=== PATIENT | female | born 1935 | race Caucasian/White ===

== ENCOUNTER 2021-12-31 20:22 | Inpatient (IN) | payer MEDICARE ==
[2021-12-31] MEDS ORDERED: Enoxaparin Sodium 40 MG/0.4 ML SYRINGE SC SCH (22:30)
[2021-12-31] MEDS ORDERED: hydrALAZINE 20 MG/ML VIAL SLOW IVP PRN (23:29)
[2021-12-31] MEDS ORDERED: Ascorbic Acid 500 mg Chewable Tablet PO SCH (23:30)
[2021-12-31] MEDS ORDERED: Zinc Sulfate 220 MG CAP PO SCH (23:30)
[2021-12-31] MEDS ORDERED: Cholecalciferol (Vitamin D3) 400 UNITS TAB PO SCH (23:30)
[2021-12-31 23:34] LABS: Troponin I 0.034 ng/mL (< 0.028)
[2021-12-31] MEDS ORDERED: Pantoprazole 40 MG VIAL IVP SCH (23:45)
[2021-12-31] MEDS ORDERED: Albuterol 200 PUFF (6.7GM INHALER) INH PRN (23:49)
[2022-01-01] MEDS: Acetaminophen 325 MG TAB PO PRN ×2 (00:22→22:22)
[2022-01-01] MEDS: Melatonin 3 MG TAB PO PRN ×2 (00:22→22:22)
[2022-01-01] MEDS: Sodium Chloride 0.9% 1,000 ML IV SCH ×2 (00:22→22:22)
[2022-01-01 01:15] LABS: Bacteria/HPF None Seen HPF (None Seen); Bilirubin Negative (Negative); Blood, Urine Trace (Negative); Clarity Clear (Clear); Glucose, Urine (Dipstick) Normal (Negative); Ketone, Urine Trace mg/dL (Negative); Leukocyte Negative Leu/uL (Negative); Nitrite Negative (Negative); Protein, Urine (Dipstick) 30 mg/dL (Neg-Trace); RBC/HPF 0-3 HPF (0-3); Specific Gravity, Urine 1.008 (1.002-1.036); Squamous Epithelial None Seen HPF (0-3); Urobilinogen Normal mg/dL (Less than 2); WBC/HPF 0-3 HPF (0-3); pH, Urine 5.5 (5.0-9.0)
[2022-01-01 01:46] LABS: Urine Culture Reflex No No
[2022-01-01 02:58] LABS: Troponin I 0.029 ng/mL (< 0.028)
[2022-01-01 04:58] LABS: #Monocytes 0.5 thou/uL (0.11-0.59); #Neutrophils 1.6 thou/uL (1.40-6.50); %Basophils 0.8 % (0.0-1.0); %Eosinophils 0.6 % (0.0-10.0); %Lymphocytes 31.8 % (21.0-51.0); %Monocytes 14.7 % (0.0-10.0); Hemoglobin 12.6 g/dL (12.0-16.0); Mean Corpuscular HGB CONC 32.7 g/dL (32.0-36.0); Mean Corpuscular Hemoglobin 34.6 pg (27.0-31.0); Mean Platelet Volume 7.5 fL (7.4-10.4); Platelet Count 220 thou/uL (130-400); Platelet Morphology Comment Appears Adequate; Red Blood Cell (RBC) Count 3.65 mill/uL (4.20-5.40); White Blood Cell (WBC) Count 3.1 thou/uL (4.8-10.8)
[2022-01-01 05:19] LABS: ALT (SGPT) 20 U/L (8-55); AST (SGOT) 42 U/L (5-34); Albumin 3.6 g/dL (3.4-4.8); Alkaline Phosphatase 90 U/L (40-110); Anion Gap 15 mmol/L (10-20); BUN (Urea Nitrogen) 19 mg/dL (9.8-20.1); Bilirubin, Total 0.3 mg/dL (0.2-1.2); Calc. Creatinine Clearance 31 mL/min (70-130); Calcium 8.6 mg/dL (7.8-10.44); Carbon Dioxide 21 mmol/L (23-31); Chloride 101 mmol/L (98-107); Globulin 2.5 g/dL (2.4-3.5); Glucose 106 mg/dL (83-110); Potassium 3.3 mmol/L (3.5-5.1); Protein, Total 6.1 g/dL (5.8-8.1); Sodium 134 mmol/L (136-145)
[2022-01-01] MEDS: Cholecalciferol (Vitamin D3) 400 UNITS TAB PO SCH (08:58)
[2022-01-01] MEDS: Aspirin Chewable 81 MG TAB PO SCH (08:58)
[2022-01-01] MEDS: Amlodipine 5 MG TAB PO SCH (08:58)
[2022-01-01] MEDS: Zinc Sulfate 220 MG CAP PO SCH (08:58)
[2022-01-01] MEDS: Ascorbic Acid 500 mg Chewable Tablet PO SCH (08:58)
[2022-01-01] MEDS ORDERED: Enoxaparin Sodium 40 MG/0.4 ML SYRINGE SC SCH (09:00)
[2022-01-01] MEDS ORDERED: Potassium Chloride 20 MEQ TAB PO SCH (09:00)
[2022-01-01] MEDS ORDERED: Pantoprazole 40 MG VIAL IVP SCH (09:00)
[2022-01-01] MEDS: Famotidine 20 MG TAB PO SCH (22:22)
[2022-01-01] MEDS ORDERED: PAXLOVID PO SCH (23:59)
[2022-01-02 04:34] LABS: Hemoglobin 12.9 g/dL (12.0-16.0); Mean Corpuscular HGB CONC 32.4 g/dL (32.0-36.0); Mean Corpuscular Hemoglobin 34.1 pg (27.0-31.0); Platelet Count 233 thou/uL (130-400); Red Blood Cell (RBC) Count 3.77 mill/uL (4.20-5.40); White Blood Cell (WBC) Count 3.2 thou/uL (4.8-10.8)
[2022-01-02 04:54] LABS: Anion Gap 17 mmol/L (10-20); BUN (Urea Nitrogen) 15 mg/dL (9.8-20.1); Calc. Creatinine Clearance 40 mL/min (70-130); Calcium 8.8 mg/dL (7.8-10.44); Carbon Dioxide 18 mmol/L (23-31); Chloride 106 mmol/L (98-107); Glucose 75 mg/dL (83-110); Potassium 4.1 mmol/L (3.5-5.1); Sodium 137 mmol/L (136-145)
[2022-01-02] MEDS ORDERED: Non-Formulary Item 1 EACH (Ferrous Sulfate [Ferrous Sulfate] 325 MG Tablet) PO SCH (09:00)
[2022-01-02] MEDS ORDERED: Non-Formulary Item 1 EACH (Omeprazole [Omeprazole] 40 MG Capsule.Dr) PO SCH (09:00)
[2022-01-02] MEDS ORDERED: Losartan 25 MG TAB PO SCH ×2 (09:00→12:00)
[2022-01-02] MEDS ORDERED: HYDROXYCHLOROQUINE SULFATE 100 MG PO SCH (09:00)
[2022-01-02] MEDS: Cholecalciferol (Vitamin D3) 400 UNITS TAB PO SCH (09:54)
[2022-01-02] MEDS: Zinc Sulfate 220 MG CAP PO SCH (09:54)
[2022-01-02] MEDS: Amlodipine 5 MG TAB PO SCH (09:54)
[2022-01-02] MEDS: Ascorbic Acid 500 mg Chewable Tablet PO SCH (09:54)
[2022-01-02] MEDS: Enoxaparin Sodium 30 MG/0.3 ML SYRINGE SC SCH (09:54)
[2022-01-02] MEDS: Leflunomide 10 mg Tablet PO SCH (09:54)
[2022-01-02] MEDS: Aspirin Chewable 81 MG TAB PO SCH (09:54)
[2022-01-02] MEDS: Hydroxychloroquine Sulfate 200 MG TAB PO SCH (10:00)
[2022-01-02] MEDS: PAXLOVID PO SCH ×2 (10:04→22:20)
[2022-01-02] MEDS: Ondansetron PF 4 MG/2 ML Vial IVP PRN (15:22)
[2022-01-02] MEDS: Ferrous Sulfate 325 MG TAB PO SCH (17:16)
[2022-01-02] MEDS: Dronabinol 2.5 MG CAP PO SCH (17:16)
[2022-01-02] MEDS: Metoprolol Tartrate 25 MG TAB PO SCH (20:33)
[2022-01-02] MEDS: Melatonin 3 MG TAB PO PRN (20:33)
[2022-01-02] MEDS: Famotidine 20 MG TAB PO SCH (20:34)
[2022-01-03] MEDS: Ondansetron PF 4 MG/2 ML Vial IVP PRN (03:00)
[2022-01-03] MEDS ORDERED: Promethazine HCl 25 MG/ML VIAL IM PRN (06:55)
[2022-01-03] MEDS: Metoprolol Tartrate 25 MG TAB PO SCH ×2 (09:43→20:23)
[2022-01-03] MEDS: Ferrous Sulfate 325 MG TAB PO SCH ×2 (09:43→16:52)
[2022-01-03] MEDS: Aspirin Chewable 81 MG TAB PO SCH (09:43)
[2022-01-03] MEDS: Amlodipine 5 MG TAB PO SCH (09:43)
[2022-01-03] MEDS: Cholecalciferol (Vitamin D3) 400 UNITS TAB PO SCH (09:43)
[2022-01-03] MEDS: Dronabinol 2.5 MG CAP PO SCH ×2 (09:43→16:52)
[2022-01-03] MEDS: Leflunomide 10 mg Tablet PO SCH (09:44)
[2022-01-03] MEDS: Losartan 25 MG TAB PO SCH (09:44)
[2022-01-03] MEDS: Enoxaparin Sodium 30 MG/0.3 ML SYRINGE SC SCH (09:44)
[2022-01-03] MEDS: Hydroxychloroquine Sulfate 200 MG TAB PO SCH (09:44)
[2022-01-03] MEDS: Zinc Sulfate 220 MG CAP PO SCH (09:44)
[2022-01-03] MEDS: PAXLOVID PO SCH ×2 (09:44→21:18)
[2022-01-03] MEDS: Ascorbic Acid 500 mg Chewable Tablet PO SCH (09:44)
[2022-01-03 17:12] LABS: Bacteria/HPF 4+ HPF (None Seen); Bilirubin Negative (Negative); Blood, Urine 2+ (Negative); Clarity Turbid (Clear); Glucose, Urine (Dipstick) Normal (Negative); Ketone, Urine 20 mg/dL (Negative); Leukocyte 500 Leu/uL (Negative); Nitrite Negative (Negative); Protein, Urine (Dipstick) 100 mg/dL (Neg-Trace); Specific Gravity, Urine 1.022 (1.002-1.036); Squamous Epithelial None Seen HPF (0-3); Urobilinogen Normal mg/dL (Less than 2); WBC/HPF Greater than 50 HPF (0-3)
[2022-01-03] MEDS: cefTRIAXone\\ROCEPHIN 2 GM in Sodium Chloride 0.9% 100 ML IVPB SCH (20:23)
[2022-01-03] MEDS: Famotidine 20 MG TAB PO SCH (20:24)
[2022-01-04 05:03] LABS: Hemoglobin 13.7 g/dL (12.0-16.0); Mean Corpuscular HGB CONC 32.8 g/dL (32.0-36.0); Mean Corpuscular Hemoglobin 34.6 pg (27.0-31.0); Mean Platelet Volume 8.6 fL (7.4-10.4); Platelet Count 196 thou/uL (130-400); RBC Distribution Width 12.2 % (11.5-14.5); Red Blood Cell (RBC) Count 3.97 mill/uL (4.20-5.40); White Blood Cell (WBC) Count 5.3 thou/uL (4.8-10.8)
[2022-01-04 05:05] LABS: Anion Gap 16 mmol/L (10-20); BUN (Urea Nitrogen) 16 mg/dL (9.8-20.1); Calc. Creatinine Clearance 42 mL/min (70-130); Calcium 8.8 mg/dL (7.8-10.44); Carbon Dioxide 23 mmol/L (23-31); Chloride 104 mmol/L (98-107); Glucose 85 mg/dL (83-110); Potassium 3.6 mmol/L (3.5-5.1); Sodium 139 mmol/L (136-145)
[2022-01-04] MEDS: Labetalol HCl 100 MG/20 ML VIAL SLOW IVP SCH ×2 (06:20→06:23)
[2022-01-04] MEDS: Aspirin Chewable 81 MG TAB PO SCH ×2 (09:35→10:02)
[2022-01-04] MEDS: Metoprolol Tartrate 25 MG TAB PO SCH ×2 (09:35→21:34)
[2022-01-04] MEDS: Zinc Sulfate 220 MG CAP PO SCH ×2 (09:35→10:02)
[2022-01-04] MEDS: Dronabinol 2.5 MG CAP PO SCH ×2 (09:35→16:58)
[2022-01-04] MEDS: Losartan 25 MG TAB PO SCH (09:35)
[2022-01-04] MEDS: PAXLOVID PO SCH ×2 (09:36→21:34)
[2022-01-04] MEDS: Amlodipine 5 MG TAB PO SCH (09:36)
[2022-01-04] MEDS: Ascorbic Acid 500 mg Chewable Tablet PO SCH ×2 (09:36→10:02)
[2022-01-04] MEDS: Cholecalciferol (Vitamin D3) 400 UNITS TAB PO SCH ×2 (09:36→10:02)
[2022-01-04] MEDS: Leflunomide 10 mg Tablet PO SCH ×2 (09:36→10:02)
[2022-01-04] MEDS: Hydroxychloroquine Sulfate 200 MG TAB PO SCH (09:36)
[2022-01-04] MEDS: Enoxaparin Sodium 30 MG/0.3 ML SYRINGE SC SCH (09:36)
[2022-01-04] MEDS: Ferrous Sulfate 325 MG TAB PO SCH ×3 (09:36→16:58)
[2022-01-04] MEDS ORDERED: Metoprolol Tartrate 25 MG TAB PO SCH (11:30)
[2022-01-04] MEDS ORDERED: Fleet Enema 133 ML BOT PR SCH (11:45)
[2022-01-04] MEDS: Famotidine 20 MG TAB PO SCH (21:34)
[2022-01-04] MEDS: cefTRIAXone\\ROCEPHIN 2 GM in Sodium Chloride 0.9% 100 ML IVPB SCH (21:35)
[2022-01-05 03:43] LABS: #Eosinphils 0.2 thou/uL (0.0-0.7); #Monocytes 0.8 thou/uL (0.11-0.59); #Neutrophils 3.4 thou/uL (1.40-6.50); %Basophils 0.1 % (0.0-1.0); %Eosinophils 4.3 % (0.0-10.0); %Lymphocytes 17.8 % (21.0-51.0); %Monocytes 14.7 % (0.0-10.0); %Neutrophils 63.1 % (42.0-75.0); Hemoglobin 13.6 g/dL (12.0-16.0); Mean Corpuscular Hemoglobin 34.9 pg (27.0-31.0); Mean Platelet Volume 8.5 fL (7.4-10.4); Platelet Count 198 thou/uL (130-400); RBC Distribution Width 12.1 % (11.5-14.5); Red Blood Cell (RBC) Count 3.89 mill/uL (4.20-5.40); White Blood Cell (WBC) Count 5.4 thou/uL (4.8-10.8)
[2022-01-05 04:06] LABS: Anion Gap 14 mmol/L (10-20); BUN (Urea Nitrogen) 24 mg/dL (9.8-20.1); Calc. Creatinine Clearance 36 mL/min (70-130); Calcium 8.3 mg/dL (7.8-10.44); Carbon Dioxide 24 mmol/L (23-31); Chloride 105 mmol/L (98-107); Glucose 96 mg/dL (83-110); Potassium 3.2 mmol/L (3.5-5.1); Sodium 140 mmol/L (136-145)
[2022-01-05] MEDS ORDERED: Enoxaparin Sodium 40 MG/0.4 ML SYRINGE SC SCH (09:00)
[2022-01-05] MEDS: Metoprolol Tartrate 25 MG TAB PO SCH ×2 (09:40→21:15)
[2022-01-05] MEDS: Ascorbic Acid 500 mg Chewable Tablet PO SCH ×2 (09:40→10:03)
[2022-01-05] MEDS: Ferrous Sulfate 325 MG TAB PO SCH ×3 (09:40→18:17)
[2022-01-05] MEDS: Losartan 25 MG TAB PO SCH (09:40)
[2022-01-05] MEDS: Cholecalciferol (Vitamin D3) 400 UNITS TAB PO SCH ×2 (09:40→10:03)
[2022-01-05] MEDS: Zinc Sulfate 220 MG CAP PO SCH ×2 (09:40→10:04)
[2022-01-05] MEDS: Dronabinol 2.5 MG CAP PO SCH ×2 (09:41→17:30)
[2022-01-05] MEDS: Aspirin Chewable 81 MG TAB PO SCH (09:41)
[2022-01-05] MEDS: Hydroxychloroquine Sulfate 200 MG TAB PO SCH (09:41)
[2022-01-05] MEDS: Leflunomide 10 mg Tablet PO SCH (09:41)
[2022-01-05] MEDS: Amlodipine 5 MG TAB PO SCH (09:41)
[2022-01-05] MEDS ORDERED: Bisacodyl 10 MG SUPP PR PRN (12:33)
[2022-01-05] MEDS ORDERED: Potassium Chloride 20 MEQ TAB PO SCH (13:45)
[2022-01-05] MEDS: cefTRIAXone\\ROCEPHIN 2 GM in Sodium Chloride 0.9% 100 ML IVPB SCH (21:15)
[2022-01-05] MEDS: Famotidine 20 MG TAB PO SCH (21:15)
[2022-01-05] MEDS: Ondansetron PF 4 MG/2 ML Vial IVP PRN (22:10)
[2022-01-06 04:36] LABS: #Eosinphils 0.3 thou/uL (0.0-0.7); #Monocytes 0.9 thou/uL (0.11-0.59); #Neutrophils 3.8 thou/uL (1.40-6.50); %Basophils 0.2 % (0.0-1.0); %Eosinophils 4.6 % (0.0-10.0); %Lymphocytes 16.1 % (21.0-51.0); %Monocytes 14.4 % (0.0-10.0); %Neutrophils 64.6 % (42.0-75.0); Hemoglobin 13.3 g/dL (12.0-16.0); Mean Corpuscular HGB CONC 32.8 g/dL (32.0-36.0); Mean Corpuscular Hemoglobin 34.6 pg (27.0-31.0); Mean Platelet Volume 9.1 fL (7.4-10.4); Platelet Count 245 thou/uL (130-400); Red Blood Cell (RBC) Count 3.84 mill/uL (4.20-5.40); White Blood Cell (WBC) Count 5.9 thou/uL (4.8-10.8)
[2022-01-06 05:04] LABS: Anion Gap 16 mmol/L (10-20); BUN (Urea Nitrogen) 27 mg/dL (9.8-20.1); Calc. Creatinine Clearance 37 mL/min (70-130); Calcium 8.6 mg/dL (7.8-10.44); Carbon Dioxide 24 mmol/L (23-31); Chloride 104 mmol/L (98-107); Glucose 106 mg/dL (83-110); Potassium 3.6 mmol/L (3.5-5.1); Sodium 140 mmol/L (136-145)
[2022-01-06] MEDS: Ondansetron PF 4 MG/2 ML Vial IVP PRN ×2 (05:41→17:19)
[2022-01-06] MEDS ORDERED: Sodium Chloride 0.9% 1,000 ML IV SCH (06:00)
[2022-01-06] MEDS ORDERED: CEFAZOLIN 1 GM VIAL ONE (06:23)
[2022-01-06] MEDS ORDERED: Gentamicin 80 MG/2 ML VIAL ONE (06:23)
[2022-01-06] MEDS ORDERED: ceFAZolin 2 GM/Dextrose 50 ML IVPB ONE (06:23)
[2022-01-06] MEDS ORDERED: Midazolam HCl 2 mg/2 ml Vial ONE (07:12)
[2022-01-06] MEDS ORDERED: Fentanyl 100 MCG/2 ML VIAL ONE (07:12)
[2022-01-06] MEDS ORDERED: Ondansetron PF 4 MG/2 ML Vial ONE (07:19)
[2022-01-06] MEDS ORDERED: Lidocaine 1% (PF) 30 ML VIAL ONE ×2 (07:26→07:27)
[2022-01-06] MEDS ORDERED: Vancomycin HCl 500 MG VIAL ONE (07:32)
[2022-01-06] MEDS: Ascorbic Acid 500 mg Chewable Tablet PO SCH (08:23)
[2022-01-06] MEDS: Aspirin Chewable 81 MG TAB PO SCH (08:23)
[2022-01-06] MEDS: Ferrous Sulfate 325 MG TAB PO SCH ×2 (08:23→17:19)
[2022-01-06] MEDS: Amlodipine 5 MG TAB PO SCH (08:23)
[2022-01-06] MEDS: Dronabinol 2.5 MG CAP PO SCH ×2 (08:23→17:19)
[2022-01-06] MEDS: Cholecalciferol (Vitamin D3) 400 UNITS TAB PO SCH (08:23)
[2022-01-06] MEDS: Leflunomide 10 mg Tablet PO SCH (08:24)
[2022-01-06] MEDS: Hydroxychloroquine Sulfate 200 MG TAB PO SCH (08:24)
[2022-01-06] MEDS: Sulfameth/Trimethoprim DS 800-160mg TAB PO SCH ×2 (08:24→22:21)
[2022-01-06] MEDS: Metoprolol Tartrate 25 MG TAB PO SCH ×2 (08:24→22:21)
[2022-01-06] MEDS: Zinc Sulfate 220 MG CAP PO SCH (08:25)
[2022-01-06] MEDS ORDERED: Amiodarone 150 MG in Dextrose 5% in Water 100 ML IVPB SCH (09:45)
[2022-01-06] MEDS ORDERED: Amiodarone 450 MG in Dextrose 5% in Water 250 ML IVPB SCH (09:45)
[2022-01-06] MEDS ORDERED: Iopamidol 370 76% 50 ML VIAL FS ONE (09:48)
[2022-01-06] MEDS: Cephalexin 250 MG CAP PO SCH ×2 (15:58→22:21)
[2022-01-06] MEDS ORDERED: Promethazine HCl 25 MG in Sodium Chloride 0.9% 50 ML IVPB SCH (21:30)
[2022-01-06] MEDS: Famotidine 20 MG TAB PO SCH (22:21)
[2022-01-07 04:05] LABS: #Eosinphils 0.1 thou/uL (0.0-0.7); #Lymphocytes 0.6 thou/uL (1.20-3.40); #Neutrophils 5.3 thou/uL (1.40-6.50); %Basophils 0.4 % (0.0-1.0); %Eosinophils 1.1 % (0.0-10.0); %Lymphocytes 8.4 % (21.0-51.0); %Monocytes 14.6 % (0.0-10.0); %Neutrophils 75.5 % (42.0-75.0); Hemoglobin 12.1 g/dL (12.0-16.0); Mean Corpuscular HGB CONC 33.4 g/dL (32.0-36.0); Mean Corpuscular Hemoglobin 35.1 pg (27.0-31.0); Mean Platelet Volume 8.7 fL (7.4-10.4); Platelet Count 230 thou/uL (130-400); RBC Distribution Width 12.1 % (11.5-14.5); Red Blood Cell (RBC) Count 3.45 mill/uL (4.20-5.40)
[2022-01-07 04:29] LABS: Anion Gap 14 mmol/L (10-20); BUN (Urea Nitrogen) 27 mg/dL (9.8-20.1); Calc. Creatinine Clearance 36 mL/min (70-130); Calcium 8.8 mg/dL (7.8-10.44); Carbon Dioxide 21 mmol/L (23-31); Chloride 106 mmol/L (98-107); Glucose 121 mg/dL (83-110); Potassium 3.3 mmol/L (3.5-5.1); Sodium 138 mmol/L (136-145)
[2022-01-07] MEDS: Dronabinol 2.5 MG CAP PO SCH ×2 (09:59→17:08)
[2022-01-07] MEDS: Hydroxychloroquine Sulfate 200 MG TAB PO SCH (10:00)
[2022-01-07] MEDS: Ascorbic Acid 500 mg Chewable Tablet PO SCH (10:00)
[2022-01-07] MEDS: Zinc Sulfate 220 MG CAP PO SCH (10:00)
[2022-01-07] MEDS: Amlodipine 5 MG TAB PO SCH (10:00)
[2022-01-07] MEDS: Aspirin Chewable 81 MG TAB PO SCH (10:02)
[2022-01-07] MEDS: Cephalexin 250 MG CAP PO SCH ×3 (10:02→21:44)
[2022-01-07] MEDS: Leflunomide 10 mg Tablet PO SCH (10:02)
[2022-01-07] MEDS: Metoprolol Tartrate 25 MG TAB PO SCH ×2 (10:02→21:44)
[2022-01-07] MEDS: Sulfameth/Trimethoprim DS 800-160mg TAB PO SCH (10:03)
[2022-01-07] MEDS: Cholecalciferol (Vitamin D3) 400 UNITS TAB PO SCH (10:03)
[2022-01-07] MEDS: Ondansetron PF 4 MG/2 ML Vial IVP PRN (10:13)
[2022-01-07] MEDS: Ferrous Sulfate 325 MG TAB PO SCH ×2 (10:28→17:08)
[2022-01-07] MEDS ORDERED: Meropenem 1 GM in Sodium Chloride 0.9% 100 ML IVPB SCH ×2 (17:30→17:45)
[2022-01-07] MEDS: Acetaminophen 325 MG TAB PO PRN (21:43)
[2022-01-07] MEDS: Melatonin 3 MG TAB PO PRN (21:43)
[2022-01-07] MEDS: Famotidine 20 MG TAB PO SCH (21:44)
[2022-01-08] MEDS ORDERED: Meropenem 1 GM in Sodium Chloride 0.9% 100 ML IVPB SCH (02:00)
[2022-01-08 04:40] LABS: Anion Gap 15 mmol/L (10-20); BUN (Urea Nitrogen) 23 mg/dL (9.8-20.1); Calc. Creatinine Clearance 35 mL/min (70-130); Calcium 8.7 mg/dL (7.8-10.44); Carbon Dioxide 19 mmol/L (23-31); Chloride 107 mmol/L (98-107); Glucose 119 mg/dL (83-110); Sodium 137 mmol/L (136-145)
[2022-01-08 04:48] LABS: Eosinophils 4 % (0-10); Hemoglobin 10.6 g/dL (12.0-16.0); Lymphocytes 11 % (21-51); MDiff Complete? YES; Macrocytosis MODERATE=16-30 cells (100X) (0-5/hpf); Mean Corpuscular HGB CONC 32.9 g/dL (32.0-36.0); Mean Corpuscular Hemoglobin 35.3 pg (27.0-31.0); Mean Platelet Volume 9.5 fL (7.4-10.4); Monocytes 11 % (0-10); Neutrophil 73 % (42-75); Ovalocytes SLIGHT = 2-5 cells (100X) (0-1/hpf); Platelet Count 103 thou/uL (130-400); Platelet Morphology Comment Appears Decreased; RBC Distribution Width 12.1 % (11.5-14.5); Red Blood Cell (RBC) Count 3.01 mill/uL (4.20-5.40); White Blood Cell (WBC) Count 6.4 thou/uL (4.8-10.8)
[2022-01-08] MEDS: Zinc Sulfate 220 MG CAP PO SCH (08:56)
[2022-01-08] MEDS: Hydroxychloroquine Sulfate 200 MG TAB PO SCH (08:56)
[2022-01-08] MEDS: Aspirin Chewable 81 MG TAB PO SCH (08:56)
[2022-01-08] MEDS: Metoprolol Tartrate 25 MG TAB PO SCH ×2 (08:56→20:42)
[2022-01-08] MEDS: Leflunomide 10 mg Tablet PO SCH (08:56)
[2022-01-08] MEDS: Cephalexin 250 MG CAP PO SCH ×3 (08:56→20:42)
[2022-01-08] MEDS: Apixaban 2.5 MG TAB PO SCH ×2 (08:56→20:42)
[2022-01-08] MEDS: Amlodipine 5 MG TAB PO SCH (08:57)
[2022-01-08] MEDS: Ferrous Sulfate 325 MG TAB PO SCH ×2 (08:57→17:07)
[2022-01-08] MEDS: Cholecalciferol (Vitamin D3) 400 UNITS TAB PO SCH (08:57)
[2022-01-08] MEDS: Ascorbic Acid 500 mg Chewable Tablet PO SCH (08:57)
[2022-01-08] MEDS ORDERED: Promethazine HCl 25 MG in Sodium Chloride 0.9% 50 ML IVPB PRN (09:24)
[2022-01-08] MEDS ORDERED: Nystatin 500,000 UNITS/5 ML UDCUP SSW SCH (09:30)
[2022-01-08] MEDS ORDERED: Nystatin 100,000 Units/mL UDCUP SSW SCH (09:30)
[2022-01-08] MEDS: Dronabinol 2.5 MG CAP PO SCH ×2 (09:40→17:03)
[2022-01-08] MEDS: Acetaminophen 325 MG TAB PO PRN (10:11)
[2022-01-08] MEDS: Nystatin 500,000 UNITS/5 ML UDCUP SSW SCH ×3 (14:01→20:42)
[2022-01-08] MEDS: Ondansetron PF 4 MG/2 ML Vial IVP PRN (17:04)
[2022-01-08] MEDS: Pregabalin 50 MG CAP PO SCH (20:41)
[2022-01-08] MEDS: Amiodarone 200 MG TAB PO SCH (20:42)
[2022-01-08] MEDS: Famotidine 20 MG TAB PO SCH (20:42)
[2022-01-09 05:09] LABS: Anion Gap 12 mmol/L (10-20); BUN (Urea Nitrogen) 21 mg/dL (9.8-20.1); Calc. Creatinine Clearance 38 mL/min (70-130); Calcium 8.6 mg/dL (7.8-10.44); Carbon Dioxide 24 mmol/L (23-31); Chloride 104 mmol/L (98-107); Glucose 111 mg/dL (83-110); Potassium 3.8 mmol/L (3.5-5.1); Sodium 136 mmol/L (136-145)
[2022-01-09 05:11] LABS: Band 6 % (5-11); Eosinophils 2 % (0-10); Hemoglobin 11.2 g/dL (12.0-16.0); Hypochromia SLIGHT = 6-15 cells (100X) (0-5/hpf); Lymphocytes 11 % (21-51); MDiff Complete? YES; Macrocytosis SLIGHT = 6-15 cells (100X) (0-5/hpf); Mean Corpuscular HGB CONC 32.3 g/dL (32.0-36.0); Mean Corpuscular Hemoglobin 33.9 pg (27.0-31.0); Mean Platelet Volume 8.1 fL (7.4-10.4); Monocytes 15 % (0-10); Neutrophil 66 % (42-75); Platelet Count 280 thou/uL (130-400); Platelet Morphology Comment Appears Adequate; RBC Distribution Width 11.9 % (11.5-14.5); White Blood Cell (WBC) Count 6.6 thou/uL (4.8-10.8)
[2022-01-09] MEDS: Dronabinol 2.5 MG CAP PO SCH ×2 (10:09→17:47)
[2022-01-09] MEDS: Ferrous Sulfate 325 MG TAB PO SCH ×2 (10:09→17:19)
[2022-01-09] MEDS: Amlodipine 5 MG TAB PO SCH (10:10)
[2022-01-09] MEDS: Amiodarone 200 MG TAB PO SCH ×3 (10:10→20:53)
[2022-01-09] MEDS: Apixaban 2.5 MG TAB PO SCH ×2 (10:11→20:53)
[2022-01-09] MEDS: Aspirin Chewable 81 MG TAB PO SCH (10:12)
[2022-01-09] MEDS: Cholecalciferol (Vitamin D3) 400 UNITS TAB PO SCH (10:12)
[2022-01-09] MEDS: Cephalexin 250 MG CAP PO SCH ×3 (10:12→20:53)
[2022-01-09] MEDS: Ascorbic Acid 500 mg Chewable Tablet PO SCH (10:12)
[2022-01-09] MEDS: Hydroxychloroquine Sulfate 200 MG TAB PO SCH (10:13)
[2022-01-09] MEDS: Nystatin 500,000 UNITS/5 ML UDCUP SSW SCH ×4 (10:14→20:53)
[2022-01-09] MEDS: Metoprolol Tartrate 50 MG TAB PO SCH ×2 (10:14→20:53)
[2022-01-09] MEDS: Leflunomide 10 mg Tablet PO SCH (10:14)
[2022-01-09] MEDS: Pregabalin 50 MG CAP PO SCH ×2 (10:15→20:53)
[2022-01-09] MEDS: Zinc Sulfate 220 MG CAP PO SCH (10:16)
[2022-01-09] MEDS: Ondansetron PF 4 MG/2 ML Vial IVP SCH ×3 (12:43→23:19)
[2022-01-09] MEDS: Acetaminophen 325 MG TAB PO PRN (20:52)
[2022-01-09] MEDS: Famotidine 20 MG TAB PO SCH (20:53)
[2022-01-09] MEDS: Melatonin 3 MG TAB PO PRN (20:53)
[2022-01-10] MEDS: Ondansetron PF 4 MG/2 ML Vial IVP SCH ×4 (05:04→23:39)
[2022-01-10] MEDS: Pregabalin 50 MG CAP PO SCH ×2 (08:51→23:58)
[2022-01-10] MEDS: Amiodarone 200 MG TAB PO SCH ×3 (08:53→23:58)
[2022-01-10] MEDS: Dronabinol 2.5 MG CAP PO SCH ×2 (08:53→16:21)
[2022-01-10] MEDS: Apixaban 2.5 MG TAB PO SCH ×2 (08:53→23:58)
[2022-01-10] MEDS: Amlodipine 5 MG TAB PO SCH (08:53)
[2022-01-10] MEDS: Ascorbic Acid 500 mg Chewable Tablet PO SCH (08:53)
[2022-01-10] MEDS: Ferrous Sulfate 325 MG TAB PO SCH ×2 (08:53→16:21)
[2022-01-10] MEDS: Cholecalciferol (Vitamin D3) 400 UNITS TAB PO SCH (08:54)
[2022-01-10] MEDS: Aspirin Chewable 81 MG TAB PO SCH (08:54)
[2022-01-10] MEDS: Hydroxychloroquine Sulfate 200 MG TAB PO SCH (08:54)
[2022-01-10] MEDS: Zinc Sulfate 220 MG CAP PO SCH (08:54)
[2022-01-10] MEDS: Leflunomide 10 mg Tablet PO SCH (08:54)
[2022-01-10] MEDS: Cephalexin 250 MG CAP PO SCH ×3 (08:54→23:58)
[2022-01-10] MEDS: Metoprolol Tartrate 50 MG TAB PO SCH ×2 (08:54→23:58)
[2022-01-10] MEDS: Nystatin 500,000 UNITS/5 ML UDCUP SSW SCH ×4 (08:55→23:17)
[2022-01-10] MEDS ORDERED: guaiFENesin ER 600 MG TAB PO SCH ×2 (11:00→21:00)
[2022-01-10] MEDS: GUAIFENESIN SF SOLN 200 MG/10 ML UDCUP PO PRN ×2 (11:30→16:21)
[2022-01-10] MEDS: Scopolamine 1.5 mg/72 hour Patch TD SCH (16:21)
[2022-01-10] MEDS ORDERED: Acetaminophen 325 MG TAB PER TUBE PRN (22:29)
[2022-01-10] MEDS ORDERED: Apixaban 2.5 MG TAB PER TUBE SCH (22:45)
[2022-01-10] MEDS ORDERED: Melatonin 3 MG TAB PER TUBE PRN (22:57)
[2022-01-10] MEDS ORDERED: Cephalexin 250 MG CAP PER TUBE SCH (23:00)
[2022-01-10] MEDS ORDERED: Famotidine 20 MG TAB PER TUBE SCH (23:00)
[2022-01-10] MEDS ORDERED: Metoprolol Tartrate 50 MG TAB PER TUBE SCH (23:00)
[2022-01-10] MEDS ORDERED: Amiodarone 200 MG TAB PER TUBE SCH (23:15)
[2022-01-10] MEDS ORDERED: Pregabalin 50 MG CAP PER TUBE SCH (23:15)
[2022-01-10] MEDS: Famotidine 20 MG TAB PO SCH (23:58)
[2022-01-11] MEDS: Ondansetron PF 4 MG/2 ML Vial IVP SCH ×3 (06:18→17:42)
[2022-01-11] MEDS: Aspirin Chewable 81 MG TAB PER TUBE SCH (11:06)
[2022-01-11] MEDS: Ascorbic Acid 500 mg Chewable Tablet PER TUBE SCH (11:06)
[2022-01-11] MEDS: Hydroxychloroquine Sulfate 200 MG TAB PER TUBE SCH (11:06)
[2022-01-11] MEDS: Lansoprazole 3 MG/ML ORAL SUSPENSION PER TUBE SCH (11:06)
[2022-01-11] MEDS: Metoprolol Tartrate 50 MG TAB PER TUBE SCH ×2 (11:07→20:30)
[2022-01-11] MEDS: Ferrous Sulfate 325 MG TAB PO SCH ×2 (11:07→17:35)
[2022-01-11] MEDS: Amlodipine 5 MG TAB PER TUBE SCH (11:08)
[2022-01-11] MEDS: Amiodarone 200 MG TAB PER TUBE SCH ×3 (11:08→20:32)
[2022-01-11] MEDS: Cholecalciferol (Vitamin D3) 400 UNITS TAB PER TUBE SCH (11:08)
[2022-01-11] MEDS: Cephalexin 250 MG CAP PER TUBE SCH ×3 (11:08→20:31)
[2022-01-11] MEDS: Dronabinol 2.5 MG CAP PO SCH ×2 (11:08→15:41)
[2022-01-11] MEDS: Leflunomide 10 mg Tablet PO SCH (11:09)
[2022-01-11] MEDS: Apixaban 2.5 MG TAB PER TUBE SCH ×2 (11:09→20:32)
[2022-01-11] MEDS: Zinc Sulfate 220 MG CAP PER TUBE SCH (11:09)
[2022-01-11] MEDS: Pregabalin 50 MG CAP PER TUBE SCH ×2 (11:09→20:31)
[2022-01-11] MEDS: Nystatin 500,000 UNITS/5 ML UDCUP SSW SCH ×4 (11:11→20:32)
[2022-01-11] MEDS: Famotidine 20 MG TAB PER TUBE SCH (20:31)
[2022-01-12] MEDS: Ondansetron PF 4 MG/2 ML Vial IVP SCH ×5 (01:07→23:35)
[2022-01-12 04:10] LABS: Anion Gap 13 mmol/L (10-20); BUN (Urea Nitrogen) 25 mg/dL (9.8-20.1); Calc. Creatinine Clearance 35 mL/min (70-130); Carbon Dioxide 29 mmol/L (23-31); Chloride 99 mmol/L (98-107); Estimated GFR 70; Glucose 86 mg/dL (83-110); Potassium 4.7 mmol/L (3.5-5.1); Sodium 136 mmol/L (136-145)
[2022-01-12 04:48] LABS: Band 16 % (5-11); Eosinophils 1 % (0-10); Hemoglobin 10.8 g/dL (12.0-16.0); Lymphocytes 9 % (21-51); MDiff Complete? YES; Mean Corpuscular HGB CONC 31.6 g/dL (32.0-36.0); Mean Corpuscular Hemoglobin 34.1 pg (27.0-31.0); Mean Platelet Volume 7.9 fL (7.4-10.4); Monocytes 14 % (0-10); Neutrophil 57 % (42-75); Platelet Count 331 thou/uL (130-400); RBC Distribution Width 11.9 % (11.5-14.5); Red Blood Cell (RBC) Count 3.16 mill/uL (4.20-5.40); White Blood Cell (WBC) Count 9.1 thou/uL (4.8-10.8)
[2022-01-12] MEDS: Aspirin Chewable 81 MG TAB PER TUBE SCH (10:08)
[2022-01-12] MEDS: Nystatin 500,000 UNITS/5 ML UDCUP SSW SCH ×4 (10:08→20:42)
[2022-01-12] MEDS: Apixaban 2.5 MG TAB PER TUBE SCH ×2 (10:08→20:42)
[2022-01-12] MEDS: Amlodipine 5 MG TAB PER TUBE SCH (10:09)
[2022-01-12] MEDS: Dronabinol 2.5 MG CAP PO SCH (10:09)
[2022-01-12] MEDS: Cholecalciferol (Vitamin D3) 400 UNITS TAB PER TUBE SCH (10:09)
[2022-01-12] MEDS: Ferrous Sulfate 325 MG TAB PO SCH ×2 (10:09→16:43)
[2022-01-12] MEDS: Metoprolol Tartrate 50 MG TAB PER TUBE SCH ×2 (10:09→20:42)
[2022-01-12] MEDS: Amiodarone 200 MG TAB PER TUBE SCH ×3 (10:09→20:41)
[2022-01-12] MEDS: Ascorbic Acid 500 mg Chewable Tablet PER TUBE SCH (10:09)
[2022-01-12] MEDS: Hydroxychloroquine Sulfate 200 MG TAB PER TUBE SCH (10:10)
[2022-01-12] MEDS: Leflunomide 10 mg Tablet PO SCH (10:10)
[2022-01-12] MEDS: Cephalexin 250 MG CAP PER TUBE SCH (10:41)
[2022-01-12] MEDS: Zinc Sulfate 220 MG CAP PER TUBE SCH (10:42)
[2022-01-12] MEDS: Lansoprazole 3 MG/ML ORAL SUSPENSION PER TUBE SCH (10:42)
[2022-01-12] MEDS: Pregabalin 50 MG CAP PER TUBE SCH ×2 (10:42→20:41)
[2022-01-12] MEDS ORDERED: Cephalexin 250 MG CAP PER TUBE SCH (15:00)
[2022-01-12] MEDS: Cephalexin 250 MG CAP PO SCH (20:42)
[2022-01-12] MEDS: Famotidine 20 MG TAB PER TUBE SCH (20:42)
[2022-01-13] MEDS: Ondansetron PF 4 MG/2 ML Vial IVP SCH ×4 (05:28→23:29)
[2022-01-13] MEDS: Megestrol Acetate 800 MG/20 ML UDCUP PO SCH (09:47)
[2022-01-13] MEDS: Pregabalin 50 MG CAP PER TUBE SCH ×2 (09:48→21:00)
[2022-01-13] MEDS: Amiodarone 200 MG TAB PER TUBE SCH ×3 (09:48→20:57)
[2022-01-13] MEDS: Nystatin 500,000 UNITS/5 ML UDCUP SSW SCH ×4 (09:48→21:02)
[2022-01-13] MEDS: Hydroxychloroquine Sulfate 200 MG TAB PER TUBE SCH (09:48)
[2022-01-13] MEDS: Leflunomide 10 mg Tablet PO SCH (09:48)
[2022-01-13] MEDS: Apixaban 2.5 MG TAB PER TUBE SCH ×2 (09:49→20:58)
[2022-01-13] MEDS: Metoprolol Tartrate 50 MG TAB PER TUBE SCH ×2 (09:49→20:59)
[2022-01-13] MEDS: Zinc Sulfate 220 MG CAP PER TUBE SCH (09:49)
[2022-01-13] MEDS: Cephalexin 250 MG CAP PO SCH ×3 (09:49→20:58)
[2022-01-13] MEDS: Ferrous Sulfate 325 MG TAB PO SCH ×2 (09:49→17:09)
[2022-01-13] MEDS: Amlodipine 5 MG TAB PER TUBE SCH (09:49)
[2022-01-13] MEDS: Cholecalciferol (Vitamin D3) 400 UNITS TAB PER TUBE SCH (09:49)
[2022-01-13] MEDS: Aspirin Chewable 81 MG TAB PER TUBE SCH (09:49)
[2022-01-13] MEDS: Ascorbic Acid 500 mg Chewable Tablet PER TUBE SCH (09:49)
[2022-01-13] MEDS: Lansoprazole 3 MG/ML ORAL SUSPENSION PER TUBE SCH (10:25)
[2022-01-13] MEDS: Scopolamine 1.5 mg/72 hour Patch TD SCH (15:23)
[2022-01-13] MEDS: Famotidine 20 MG TAB PER TUBE SCH (21:01)
[2022-01-13] MEDS: GUAIFENESIN SF SOLN 200 MG/10 ML UDCUP PER TUBE PRN (23:27)
[2022-01-14] MEDS: Ondansetron PF 4 MG/2 ML Vial IVP SCH ×3 (05:54→19:19)
[2022-01-14] MEDS ORDERED: Polyethylene Glycol 3350 17 GM Packet PO PRN (07:45)
[2022-01-14 08:07] LABS: Anion Gap 13 mmol/L (10-20); BUN (Urea Nitrogen) 22 mg/dL (9.8-20.1); Calc. Creatinine Clearance 30 mL/min (70-130); Calcium 9.3 mg/dL (7.8-10.44); Carbon Dioxide 27 mmol/L (23-31); Chloride 100 mmol/L (98-107); Estimated GFR 58; Glucose 89 mg/dL (83-110); Potassium 5.1 mmol/L (3.5-5.1); Sodium 135 mmol/L (136-145)
[2022-01-14 08:22] LABS: Band 6 % (5-11); Eosinophils 3 % (0-10); Hemoglobin 10.4 g/dL (12.0-16.0); Lymphocytes 9 % (21-51); MDiff Complete? YES; Macrocytosis SLIGHT = 6-15 cells (100X) (0-5/hpf); Mean Corpuscular HGB CONC 33.1 g/dL (32.0-36.0); Mean Corpuscular Hemoglobin 35.2 pg (27.0-31.0); Mean Platelet Volume 7.5 fL (7.4-10.4); Monocytes 11 % (0-10); Neutrophil 67 % (42-75); Ovalocytes SLIGHT = 2-5 cells (100X) (0-1/hpf); Platelet Count 305 thou/uL (130-400); Platelet Morphology Comment Appears Adequate; Polychromasia SLIGHT = 2-3 cells (100X) (0-2/hpf); RBC Distribution Width 11.5 % (11.5-14.5); Reactive Lymphocytes 4 % (0-10); Red Blood Cell (RBC) Count 2.96 mill/uL (4.20-5.40); Schistocytes SLIGHT = 2-5 cells (100X) (0-1/hpf); White Blood Cell (WBC) Count 7.2 thou/uL (4.8-10.8)
[2022-01-14] MEDS: Aspirin Chewable 81 MG TAB PER TUBE SCH (09:43)
[2022-01-14] MEDS: Metoprolol Tartrate 50 MG TAB PER TUBE SCH ×2 (09:43→21:04)
[2022-01-14] MEDS: Leflunomide 10 mg Tablet PO SCH (09:43)
[2022-01-14] MEDS: Megestrol Acetate 800 MG/20 ML UDCUP PO SCH (09:43)
[2022-01-14] MEDS: Nystatin 500,000 UNITS/5 ML UDCUP SSW SCH ×4 (09:43→21:08)
[2022-01-14] MEDS: Hydroxychloroquine Sulfate 200 MG TAB PER TUBE SCH (09:44)
[2022-01-14] MEDS: Zinc Sulfate 220 MG CAP PER TUBE SCH (09:44)
[2022-01-14] MEDS: Apixaban 2.5 MG TAB PO SCH ×2 (09:44→21:07)
[2022-01-14] MEDS: Ferrous Sulfate 325 MG TAB PO SCH ×2 (09:44→17:04)
[2022-01-14] MEDS: Amlodipine 5 MG TAB PER TUBE SCH (09:44)
[2022-01-14] MEDS: Cephalexin 250 MG CAP PO SCH ×3 (09:44→21:06)
[2022-01-14] MEDS: Lansoprazole 3 MG/ML ORAL SUSPENSION PER TUBE SCH (09:44)
[2022-01-14] MEDS: Amiodarone 200 MG TAB PER TUBE SCH ×3 (09:45→21:03)
[2022-01-14] MEDS: Pregabalin 50 MG CAP PER TUBE SCH ×2 (09:45→21:06)
[2022-01-14] MEDS: Cholecalciferol (Vitamin D3) 400 UNITS TAB PER TUBE SCH (09:45)
[2022-01-14] MEDS: Ascorbic Acid 500 mg Chewable Tablet PER TUBE SCH (09:45)
[2022-01-14] MEDS: Polyethylene Glycol 3350 17 GM Packet PO SCH (09:45)
[2022-01-14] MEDS: Famotidine 20 MG TAB PER TUBE SCH (21:05)
[2022-01-14] MEDS: GUAIFENESIN SF SOLN 200 MG/10 ML UDCUP PER TUBE PRN (21:08)
[2022-01-15] MEDS: Ondansetron PF 4 MG/2 ML Vial IVP SCH ×5 (00:29→23:38)
[2022-01-15 04:56] LABS: #Basophils 0.1 thou/uL (0.0-0.2); #Eosinphils 0.3 thou/uL (0.0-0.7); #Neutrophils 4.3 thou/uL (1.40-6.50); %Basophils 0.8 % (0.0-1.0); %Eosinophils 4.8 % (0.0-10.0); %Lymphocytes 14.9 % (21.0-51.0); %Monocytes 14.9 % (0.0-10.0); %Neutrophils 64.7 % (42.0-75.0); Hemoglobin 9.8 g/dL (12.0-16.0); Mean Corpuscular Hemoglobin 36.1 pg (27.0-31.0); Platelet Count 319 thou/uL (130-400); RBC Distribution Width 11.5 % (11.5-14.5); Red Blood Cell (RBC) Count 2.72 mill/uL (4.20-5.40); White Blood Cell (WBC) Count 6.6 thou/uL (4.8-10.8)
[2022-01-15 05:05] LABS: Anion Gap 13 mmol/L (10-20); BUN (Urea Nitrogen) 25 mg/dL (9.8-20.1); Calc. Creatinine Clearance 29 mL/min (70-130); Calcium 9.3 mg/dL (7.8-10.44); Carbon Dioxide 27 mmol/L (23-31); Chloride 102 mmol/L (98-107); Estimated GFR 54; Glucose 91 mg/dL (83-110); Potassium 4.8 mmol/L (3.5-5.1); Sodium 137 mmol/L (136-145)
[2022-01-15] MEDS: Ferrous Sulfate 325 MG TAB PO SCH ×2 (10:54→18:14)
[2022-01-15] MEDS: Cephalexin 250 MG CAP PO SCH ×3 (10:55→21:20)
[2022-01-15] MEDS: Leflunomide 10 mg Tablet PO SCH (10:55)
[2022-01-15] MEDS: Megestrol Acetate 800 MG/20 ML UDCUP PO SCH (10:55)
[2022-01-15] MEDS: Apixaban 2.5 MG TAB PO SCH ×2 (10:56→21:20)
[2022-01-15] MEDS: Polyethylene Glycol 3350 17 GM Packet PO SCH (10:57)
[2022-01-15] MEDS: Nystatin 500,000 UNITS/5 ML UDCUP SSW SCH ×4 (10:57→21:20)
[2022-01-15] MEDS ORDERED: Melatonin 3 MG TAB PO PRN (11:00)
[2022-01-15] MEDS ORDERED: GUAIFENESIN SF SOLN 200 MG/10 ML UDCUP PO PRN (11:00)
[2022-01-15] MEDS ORDERED: Acetaminophen 325 MG TAB PO PRN (11:00)
[2022-01-15] MEDS ORDERED: Ascorbic Acid 500 mg Chewable Tablet PO SCH (11:15)
[2022-01-15] MEDS ORDERED: Amiodarone 200 MG TAB PO SCH (11:15)
[2022-01-15] MEDS ORDERED: Zinc Sulfate 220 MG CAP PO SCH (11:15)
[2022-01-15] MEDS ORDERED: Aspirin Chewable 81 MG TAB PO SCH (11:15)
[2022-01-15] MEDS ORDERED: Polyethylene Glycol 3350 17 GM Packet PO SCH (11:15)
[2022-01-15] MEDS ORDERED: Hydroxychloroquine Sulfate 200 MG TAB PO SCH (11:15)
[2022-01-15] MEDS ORDERED: Pregabalin 50 MG CAP PO SCH (11:15)
[2022-01-15] MEDS ORDERED: Amlodipine 5 MG TAB PO SCH (11:15)
[2022-01-15] MEDS ORDERED: Cholecalciferol (Vitamin D3) 400 UNITS TAB PO SCH (11:15)
[2022-01-15] MEDS: Amiodarone 200 MG TAB PER TUBE SCH (13:22)
[2022-01-15] MEDS: Hydroxychloroquine Sulfate 200 MG TAB PER TUBE SCH (13:23)
[2022-01-15] MEDS: Cholecalciferol (Vitamin D3) 400 UNITS TAB PER TUBE SCH (13:23)
[2022-01-15] MEDS: Lansoprazole 3 MG/ML ORAL SUSPENSION PER TUBE SCH (13:23)
[2022-01-15] MEDS: Ascorbic Acid 500 mg Chewable Tablet PER TUBE SCH (13:23)
[2022-01-15] MEDS: Amlodipine 5 MG TAB PER TUBE SCH (13:23)
[2022-01-15] MEDS: Aspirin Chewable 81 MG TAB PER TUBE SCH (13:23)
[2022-01-15] MEDS: Zinc Sulfate 220 MG CAP PER TUBE SCH (13:24)
[2022-01-15] MEDS: Pregabalin 50 MG CAP PER TUBE SCH (13:24)
[2022-01-15] MEDS: Metoprolol Tartrate 50 MG TAB PER TUBE SCH (13:24)
[2022-01-15] MEDS: Amiodarone 200 MG TAB PO SCH ×2 (16:19→21:20)
[2022-01-15] MEDS: Famotidine 20 MG TAB PO SCH (21:20)
[2022-01-15] MEDS: Metoprolol Tartrate 50 MG TAB PO SCH (21:21)
[2022-01-15] MEDS: Pregabalin 50 MG CAP PO SCH (21:21)
[2022-01-16 04:47] LABS: #Eosinphils 0.2 thou/uL (0.0-0.7); #Lymphocytes 0.8 thou/uL (1.20-3.40); #Monocytes 1.2 thou/uL (0.11-0.59); %Basophils 0.4 % (0.0-1.0); %Eosinophils 2.2 % (0.0-10.0); %Lymphocytes 9.6 % (21.0-51.0); %Monocytes 14.8 % (0.0-10.0); Hemoglobin 10.1 g/dL (12.0-16.0); Mean Corpuscular HGB CONC 31.4 g/dL (32.0-36.0); Mean Corpuscular Hemoglobin 33.8 pg (27.0-31.0); Mean Platelet Volume 7.5 fL (7.4-10.4); Platelet Count 321 thou/uL (130-400); RBC Distribution Width 11.7 % (11.5-14.5); Red Blood Cell (RBC) Count 2.99 mill/uL (4.20-5.40); White Blood Cell (WBC) Count 8.2 thou/uL (4.8-10.8)
[2022-01-16 05:06] LABS: Anion Gap 16 mmol/L (10-20); BUN (Urea Nitrogen) 30 mg/dL (9.8-20.1); Calc. Creatinine Clearance 26 mL/min (70-130); Carbon Dioxide 21 mmol/L (23-31); Chloride 102 mmol/L (98-107); Estimated GFR 49; Glucose 100 mg/dL (83-110); Potassium 4.4 mmol/L (3.5-5.1); Sodium 135 mmol/L (136-145)
[2022-01-16] MEDS: Ondansetron PF 4 MG/2 ML Vial IVP SCH ×4 (06:22→23:58)
[2022-01-16] MEDS: Polyethylene Glycol 3350 17 GM Packet PO SCH (11:05)
[2022-01-16] MEDS: Cephalexin 250 MG CAP PO SCH ×3 (11:05→21:42)
[2022-01-16] MEDS: Ascorbic Acid 500 mg Chewable Tablet PO SCH (11:05)
[2022-01-16] MEDS: Pregabalin 50 MG CAP PO SCH ×2 (11:06→21:42)
[2022-01-16] MEDS: Cholecalciferol (Vitamin D3) 400 UNITS TAB PO SCH (11:06)
[2022-01-16] MEDS: Metoprolol Tartrate 50 MG TAB PO SCH ×2 (11:06→21:42)
[2022-01-16] MEDS: Zinc Sulfate 220 MG CAP PO SCH (11:09)
[2022-01-16] MEDS: Apixaban 2.5 MG TAB PO SCH ×2 (11:09→21:42)
[2022-01-16] MEDS: Ferrous Sulfate 325 MG TAB PO SCH ×2 (11:10→16:57)
[2022-01-16] MEDS: Leflunomide 10 mg Tablet PO SCH (11:10)
[2022-01-16] MEDS: Aspirin Chewable 81 MG TAB PO SCH (11:10)
[2022-01-16] MEDS: Hydroxychloroquine Sulfate 200 MG TAB PO SCH (11:11)
[2022-01-16] MEDS: Nystatin 500,000 UNITS/5 ML UDCUP SSW SCH ×4 (11:11→21:42)
[2022-01-16] MEDS: Megestrol Acetate 800 MG/20 ML UDCUP PO SCH (11:11)
[2022-01-16] MEDS: Amlodipine 5 MG TAB PO SCH (11:29)
[2022-01-16] MEDS: Amiodarone 200 MG TAB PO SCH ×3 (11:29→21:42)
[2022-01-16] MEDS: Scopolamine 1.5 mg/72 hour Patch TD SCH (16:56)
[2022-01-16] MEDS: Famotidine 20 MG TAB PO SCH (21:42)
[2022-01-17 04:26] LABS: #Eosinphils 0.1 thou/uL (0.0-0.7); #Lymphocytes 0.9 thou/uL (1.20-3.40); #Monocytes 1.2 thou/uL (0.11-0.59); #Neutrophils 6.5 thou/uL (1.40-6.50); %Basophils 0.4 % (0.0-1.0); %Eosinophils 1.2 % (0.0-10.0); %Lymphocytes 10.4 % (21.0-51.0); %Monocytes 13.7 % (0.0-10.0); %Neutrophils 74.3 % (42.0-75.0); Hemoglobin 9.1 g/dL (12.0-16.0); Mean Corpuscular HGB CONC 32.4 g/dL (32.0-36.0); Mean Corpuscular Hemoglobin 34.3 pg (27.0-31.0); Mean Platelet Volume 7.3 fL (7.4-10.4); Platelet Count 328 thou/uL (130-400); RBC Distribution Width 11.6 % (11.5-14.5); Red Blood Cell (RBC) Count 2.64 mill/uL (4.20-5.40); White Blood Cell (WBC) Count 8.8 thou/uL (4.8-10.8)
[2022-01-17 04:46] LABS: Anion Gap 13 mmol/L (10-20); BUN (Urea Nitrogen) 39 mg/dL (9.8-20.1); Calc. Creatinine Clearance 24 mL/min (70-130); Calcium 9.2 mg/dL (7.8-10.44); Carbon Dioxide 23 mmol/L (23-31); Chloride 103 mmol/L (98-107); Estimated GFR 45; Glucose 103 mg/dL (83-110); Potassium 4.3 mmol/L (3.5-5.1); Sodium 135 mmol/L (136-145)
[2022-01-17] MEDS: Ondansetron PF 4 MG/2 ML Vial IVP SCH ×2 (05:25→15:02)
[2022-01-17] MEDS ORDERED: Sodium Chloride 0.9% 1,000 ML IV SCH (08:00)
[2022-01-17] MEDS: Nystatin 500,000 UNITS/5 ML UDCUP SSW SCH ×2 (09:00→15:15)
[2022-01-17] MEDS ORDERED: Fluticasone Propionate Nasal Spray 16 gm Bottle NASAL SCH (09:00)
[2022-01-17] MEDS: Zinc Sulfate 220 MG CAP PO SCH (09:06)
[2022-01-17] MEDS: Ascorbic Acid 500 mg Chewable Tablet PO SCH (09:06)
[2022-01-17] MEDS: Ferrous Sulfate 325 MG TAB PO SCH (09:07)
[2022-01-17] MEDS: Leflunomide 10 mg Tablet PO SCH (09:07)
[2022-01-17] MEDS: Cholecalciferol (Vitamin D3) 400 UNITS TAB PO SCH (09:07)
[2022-01-17] MEDS: Aspirin Chewable 81 MG TAB PO SCH (09:07)
[2022-01-17] MEDS: Amiodarone 200 MG TAB PO SCH ×2 (09:08→15:11)
[2022-01-17] MEDS: Apixaban 2.5 MG TAB PO SCH (09:08)
[2022-01-17] MEDS: Cephalexin 250 MG CAP PO SCH (09:08)
[2022-01-17] MEDS: Polyethylene Glycol 3350 17 GM Packet PO SCH (09:08)
[2022-01-17] MEDS: Pregabalin 50 MG CAP PO SCH (09:16)
[2022-01-17] MEDS ORDERED: Amlodipine 5 MG TAB PO SCH (10:00)
[2022-01-17] MEDS: Megestrol Acetate 800 MG/20 ML UDCUP PO SCH (11:51)
[2022-01-17] MEDS: Metoprolol Tartrate 50 MG TAB PO SCH (11:51)
[2022-01-17 13:50] VITALS: BMI 18.6
[2022-01-17] MEDS: Amlodipine 5 MG TAB PO SCH (14:51)
[2022-01-17] MEDS ORDERED: AMOXicillin 250 MG CAP PO SCH (15:00)
[2022-01-17] MEDS: Hydroxychloroquine Sulfate 200 MG TAB PO SCH (15:12)
[2022-01-17 16:13] VITALS: BP 123/65; TEMP 97.8
[2022-01-18] MEDS ORDERED: Amlodipine 5 MG TAB PO SCH (09:00)
[2022-01-23] MEDS ORDERED: Amiodarone 200 MG TAB PO SCH ×2 (09:00)
[2022-02-06] MEDS ORDERED: Amiodarone 200 MG TAB PO SCH ×2 (09:00)
== END 2022-01-17 16:30 | DRG 242 ==
LOC: 2NO 21:21 → OBSVTOIN 01-01 15:41
PROVIDERS: ADMIT Internal Medicine; ATTEND Internal Medicine
PROC: 0JH606Z Insertion of Pacemaker, Dual Chamber into Chest Subcutaneous Tissue and Fascia, Open Approach (ICD-10-PCS; principal; 2022-01-06)
PROC: 02H63JZ Insertion of Pacemaker Lead into Right Atrium, Percutaneous Approach (ICD-10-PCS; 2022-01-06)
PROC: 02HK3JZ Insertion of Pacemaker Lead into Right Ventricle, Percutaneous Approach (ICD-10-PCS; 2022-01-06)
PROC: B51C1ZZ Fluoroscopy of Left Lower Extremity Veins using Low Osmolar Contrast (ICD-10-PCS; 2022-01-06)
PROC: 0DH67UZ Insertion of Feeding Device into Stomach, Via Natural or Artificial Opening (ICD-10-PCS; 2022-01-07)
PROC: 3E0G76Z Introduction of Nutritional Substance into Upper GI, Via Natural or Artificial Opening (ICD-10-PCS; 2022-01-07)
DX: I48.0 Paroxysmal atrial fibrillation (principal); U07.1 COVID-19; I21.A1 Myocardial infarction type 2; E44.0 Moderate protein-calorie malnutrition; Z68.1 Body mass index [BMI] 19.9 or less, adult; N39.0 Urinary tract infection, site not specified; R64 Cachexia; I10 Essential (primary) hypertension; E78.5 Hyperlipidemia, unspecified; M79.7 Fibromyalgia; M06.9 Rheumatoid arthritis, unspecified; R79.89 Other specified abnormal findings of blood chemistry; E87.6 Hypokalemia; D72.819 Decreased white blood cell count, unspecified; R62.7 Adult failure to thrive; R33.9 Retention of urine, unspecified; K59.00 Constipation, unspecified; B96.20 Unspecified Escherichia coli [E. coli] as the cause of diseases classified elsewhere; B95.2 Enterococcus as the cause of diseases classified elsewhere; B96.4 Proteus (mirabilis) (morganii) as the cause of diseases classified elsewhere; R13.10 Dysphagia, unspecified; E86.0 Dehydration; J02.9 Acute pharyngitis, unspecified; Z87.440 Personal history of urinary (tract) infections; Z90.710 Acquired absence of both cervix and uterus; Z98.890 Other specified postprocedural states; Z79.899 Other long term (current) drug therapy
CPT/HCPCS: 33208; 36415; 36416; 71045; 71275; 74018; 75820; 80048; 80053; 81001; 82306; 82607; 82746; 84484; 85025; 85027; 87077; 87086; 87186; 93005; 93010; 93306; 93880; 96372; 96374; 96376; 97139; 99152; 99153; C1785; C1898; C9113; G0378; J0282; J0690; J0696; J1580; J1650; J2001; J2250; J2405; J2550; J3010; J3370; J3490; J7050; J7070; Q0167; Q9967